=== PATIENT | male | born 1950 | race Caucasian/White ===

== ENCOUNTER 2019-01-29 16:56 | Emergency (ER) | payer MEDICARE, SELFPAY ==
[2019-01-29 16:58] VITALS: BP 122/88; PULSE 99; RESP 16; TEMP 36.8; O2SAT 95; BMI 22.5
--- NOTE | 2019-01-29 17:25 | ED.VIS.GEN ---
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 He was found walking in the parking lot. Squad was contacted. EMS brought him to the emergency department. When asked if he smokes or drinks his initial response was he chews. He then stated he had 4 vodkas before coming to the [facility]. Patient is not a good informant. He does not answer all questions arrest. Prior similar symptoms: No - Per review of old records no Recent Illness/Hospitalization: No - Past Medical History (1) Unknown past medical history Status: Acute Past Medical History - Allergies and Home Meds Allergies/Adverse Reactions: Allergies No Known Allergies Allergy (Verified 01/29/19 17:01) Primary Care Physician: Dharmesh Hardin MD [STAFF PHYSICIAN] - Past Medical History: None Surgical History: no surgical history Lives: Alone Smoking Status: Never smoker Alcohol: Heavy Review of Systems ROS: Unable to Obtain - Patient is not a good informant. He denies everything. When asked if he drinks his initial response was no. He then informed me that he had 4 vodkas before going to the [facility]. Physical Exam Vital Signs/Narrative: Vital Signs Temp Pulse Resp BP Pulse Ox 01/29/19 16:58 98.3 F 99 16 122/88 H 95 Inital Vital Signs reviewed: Yes General: Well nourished, Well developed, No Acute Distress Head: Normocephalic, Atraumatic Eyes: Perrl, EOMI. Negative for: Pale conjunctiva, Scleral icterus, - ENT: Moist mucous membranes, No rhinorrhea Neck: Supple, Nontender, No lymphadenopathy, No JVD Cardiovascular: Regular rate, Regular rhythm, No murmurs, Normal S1, Normal S2 Respiratory: No distress, CTA bilaterally, Chest nontender Abdomen: Soft, Nontender, Nondistended, Normal bowel sounds Back: Nontender, Normal Inspection Extremities: Nontender, No edema Skin: Normal color, No rash Neurological: Cranial nerves II-XII grossly intact, Normal Strength, Normal Sensation, Normal DTR - There is no clonus or Babinski sign. Psychological: Normal affect, Normal Mood Diagnostic/Tx/Re-eval Laboratory Results 01/29/19 01/29/19 01/29/19 17:25 17:25 17:25 WBC 4.9 RBC 4.76 Hgb 15.5 Hct 45.0 MCV 94.5 H MCH 32.6 H MCHC 34.4 RDW 13.3 RDW Differential 46.0 H Plt Count 200 MPV 10.1 Immature Gran % (Auto) 0.200 Neut % (Auto) 62.3 Lymph % (Auto) 26.8 [place] % (Auto) 8.2 Eos % (Auto) 1.9 Baso % (Auto) 0.6 Absolute Neuts (auto) 3.0 Absolute Lymphs (auto) 1.30 Total Counted Not Reportable Sodium 143 Potassium 4.0 Chloride 110 H Carbon Dioxide 28.0 Anion Gap 5 BUN 10 Creatinine 1.00 Estim Creat Clear Calc 69.30 Est GFR (MDRD) Af Amer 96 Est GFR (MDRD) Non-Af 79 BUN/Creatinine Ratio 10.0 Glucose 84 Calcium 8.7 Ethyl Alcohol 112.0 - Medical Decision Making Clinically suspect patient is intoxicated. He has nystagmus. He has problems performing finger-nose to finger. Baseline blood work was obtained to assess for infectious and metabolic cause as well as alcohol level. Since his exam is nonfocal CT of the head was not ordered initially. ED Disposition - Plan for ED Patient: Disposition: Home or Assisted Living Diagnosis: Acute alcohol intoxication, Mental status change resolved Instructions: ED Alcohol Intoxication Referrals: Dharmesh Hardin MD [STAFF PHYSICIAN] - As Needed
--- NOTE | 2019-01-29 17:28 | ED.DCSUM_ITS ---
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 He was found walking in the parking lot. Squad was contacted. EMS brought him to the emergency department. When asked if he smokes or drinks his initial response was he chews. He then stated he had 4 vodkas before coming to the [facility]. Patient is not a good informant. He does not answer all questions arrest. Prior similar symptoms: No - Per review of old records no Recent Illness/Hospitalization: No - Past Medical History (1) Unknown past medical history Status: Acute Past Medical History - Allergies and Home Meds Allergies/Adverse Reactions: Allergies No Known Allergies Allergy (Verified 01/29/19 17:01) Primary Care Physician: Dharmesh Hardin MD [STAFF PHYSICIAN] - Past Medical History: None Surgical History: no surgical history Lives: Alone Smoking Status: Never smoker Alcohol: Heavy Review of Systems ROS: Unable to Obtain - Patient is not a good informant. He denies everything. When asked if he drinks his initial response was no. He then informed me that he had 4 vodkas before going to the [facility]. Physical Exam Vital Signs/Narrative: Vital Signs Temp Pulse Resp BP Pulse Ox 01/29/19 16:58 98.3 F 99 16 122/88 H 95 Inital Vital Signs reviewed: Yes General: Well nourished, Well developed, No Acute Distress Head: Normocephalic, Atraumatic Eyes: Perrl, EOMI. Negative for: Pale conjunctiva, Scleral icterus, - ENT: Moist mucous membranes, No rhinorrhea Neck: Supple, Nontender, No lymphadenopathy, No JVD Cardiovascular: Regular rate, Regular rhythm, No murmurs, Normal S1, Normal S2 Respiratory: No distress, CTA bilaterally, Chest nontender Abdomen: Soft, Nontender, Nondistended, Normal bowel sounds Back: Nontender, Normal Inspection Extremities: Nontender, No edema Skin: Normal color, No rash Neurological: Cranial nerves II-XII grossly intact, Normal Strength, Normal Sensation, Normal DTR - There is no clonus or Babinski sign. Psychological: Normal affect, Normal Mood Diagnostic/Tx/Re-eval Laboratory Results 01/29/19 01/29/19 01/29/19 17:25 17:25 17:25 WBC 4.9 RBC 4.76 Hgb 15.5 Hct 45.0 MCV 94.5 H MCH 32.6 H MCHC 34.4 RDW 13.3 RDW Differential 46.0 H Plt Count 200 MPV 10.1 Immature Gran % (Auto) 0.200 Neut % (Auto) 62.3 Lymph % (Auto) 26.8 [place] % (Auto) 8.2 Eos % (Auto) 1.9 Baso % (Auto) 0.6 Absolute Neuts (auto) 3.0 Absolute Lymphs (auto) 1.30 Total Counted Not Reportable Sodium 143 Potassium 4.0 Chloride 110 H Carbon Dioxide 28.0 Anion Gap 5 BUN 10 Creatinine 1.00 Estim Creat Clear Calc 69.30 Est GFR (MDRD) Af Amer 96 Est GFR (MDRD) Non-Af 79 BUN/Creatinine Ratio 10.0 Glucose 84 Calcium 8.7 Ethyl Alcohol 112.0 - Medical Decision Making Clinically suspect patient is intoxicated. He has nystagmus. He has problems performing finger-nose to finger. Baseline blood work was obtained to assess for infectious and metabolic cause as well as alcohol level. Since his exam is nonfocal CT of the head was not ordered initially. ED Disposition - Plan for ED Patient: Disposition: Home or Assisted Living Diagnosis: Acute alcohol intoxication, Mental status change resolved Instructions: ED Alcohol Intoxication Referrals: Dharmesh Hardin MD [STAFF PHYSICIAN] - As Needed
[2019-01-29 17:47] LABS: Anion Gap 5 (5-15); BUN 10 mg/dL (7-18); Calcium,Total 8.7 mg/dL (8.5-10.1); Chloride 110 mmol/L (98-107); EST Glomerular Filtration Rate 79 mL/min (>60); Est Glom Filt Rate - Afr Amer 96 mL/min (>60); Glucose 84 mg/dL (74-106); Sodium Level 143 mmol/L (136-145)
[2019-01-29 17:58] LABS: Basophil# 0.03 X10^3/uL; Basophil% 0.6 % (0-1); Eosinophil# 0.09 X10^3/uL; Eosinophils% 1.9 % (0-5); Hemoglobin 15.5 g/dl (13.0-16.5); Lymphocyte % 26.8 % (19-41); Mean Corp Hgb Conc 34.4 g/gl (32-36); Mean Corpuscular Hgb 32.6 pg (27.0-32.0); Mean Corpuscular Volume 94.5 fL (80-94); Mean Platelet Vol. 10.1 fl (6.2-12.0); Monocyte% 8.2 % (0-10); Neutrophil # 3.02 X10^3/uL (2.7-7.7); Neutrophil % 62.3 % (47-70); Platelet Count 200 K/mm3 (150-450); RBC Distribution Width CV 13.3 % (11.6-14.6); Red Blood Count 4.76 M/mm3 (4.6-6.2); White Blood Count 4.9 K/mm3 (4.4-11.0)
[2019-01-29 17:59] LABS: POSITIVE COUNT NO; POSITIVE DIFFERENTIAL NO; POSITIVE MORPHOLOGY NO
[2019-01-29 19:04] VITALS: BP 121/72; PULSE 92; RESP 16; O2SAT 97
[2019-01-29 19:26] VITALS: BP 138/82; PULSE 88; RESP 16; O2SAT 98
== END 2019-01-29 19:27 | disposition home or self-care (01) ==
PROVIDERS: Emergency Provider Emergency Medicine
DX: R41.82 Altered mental status, unspecified (principal); F10.129 Alcohol abuse with intoxication, unspecified; Y90.5 Blood alcohol level of 100-119 mg/100 ml
CPT/HCPCS: 80048; 80320; 85025; 99285; A4216; G0480